=== PATIENT | male | born 1990 | race Caucasian/White ===

== ENCOUNTER 2021-02-03 08:25 | Emergency (ER) | payer OTHER ==
[~2021-02-03] VITALS: Ht 165.1 cm; Wt 54.9 kg
[2021-02-03 08:30] VITALS: BP_SYST 108
--- NOTE | 2021-02-03 08:30 | NUR ---
Patient to ER bed 6 to gown for evaluation. Side rails up.
--- NOTE | 2021-02-03 08:31 | NUR ---
ER DR. GIRALDO EXAMINING PT
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
--- NOTE | 2021-02-03 08:38 | NUR ---
PORTABLE X-RAY AT THE BEDSIDE
[2021-02-03] MEDS ORDERED: BACITRACIN 1 GM OINT TP ONE (09:15)
--- NOTE | 2021-02-03 09:15 | NUR ---
ABRASION TO RIGHT HIP CLEANSED WITH NS, BACITRACIN APPLIED WITH GAUZE AND PAPER TAPE. PT TOLERATED WELL
--- NOTE | 2021-02-03 09:16 | NUR ---
PT C/O WORSENING R ANKLE PAIN, MADE AWARE
--- NOTE | 2021-02-03 09:21 | NUR ---
PORTABLE X-RAY AT THE BEDSIDE
[2021-02-03] MEDS ORDERED: DIPH-TET Vacc 0.5 ML VIAL I.M. ONE (09:54)
[2021-02-03] MEDS ORDERED: DIPH-TET-PERTUS Vaccine 0.5 ML VIAL (ADACEL) I.M. ONE (10:00)
--- NOTE | 2021-02-03 10:04 | NUR ---
Patient given written and verbal discharge instructions and verbalizes understanding. ER MD discussed with patient the results and treatment provided. Patient in stable condition. ID arm band removed. Rx of MOTRIN AND NORCO given. Patient educated on pain management and to follow up with PMD. Pain Scale 0/10. Opportunity for questions provided and answered. Medication side effect fact sheet provided.
[2021-02-03 10:05] VITALS: BP_SYST 108
== END 2021-02-03 10:04 | disposition home or self-care (01) ==
LOC: SED 08:25
DX: S70.01XA Contusion of right hip, initial encounter (principal); V18.4XXA Pedal cycle driver injured in noncollision transport accident in traffic accident, initial encounter; Y93.89 Activity, other specified; Y92.89 Other specified places as the place of occurrence of the external cause; Y99.8 Other external cause status
CPT/HCPCS: 73521; 90714; 99284